=== PATIENT | female | born 1975 | race Caucasian/White ===

== ENCOUNTER 2017-05-29 13:31 | Outpatient (CLI) | payer BC ==
--- NOTE | 2017-05-29 16:32 | RAD ---
CERVICAL SPINE AP AND LATERAL STANDARD 05/29/17 HISTORY: Cervical radiculopathy, M54.12. FINDINGS: ACDF at C6-7 without hardware complication. No significant incorporation of the disc spacer. Mild facet disc arthropathy at this level. No listhesis. IMPRESSION: ACDF at C6-7 without hardware complication. POS: [facility]
== END 2017-05-29 13:32 | disposition home or self-care (01) ==
LOC: TBSIIMAG 13:31
PROVIDERS: ATTEND Neurological Surgery
DX: M54.12 Radiculopathy, cervical region (principal)
CPT/HCPCS: 72040

== ENCOUNTER 2017-07-30 08:18 | Outpatient (CLI) | payer BC ==
--- NOTE | 2017-07-30 09:17 | CT ---
CT CERVICAL SPINE NONCONTRAST: Date: 07-30-17 History: 41-year-old female with neck pain, cervicalgia. M54.2 Comparison: No prior CTs or MRIs of the cervical spine. 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 This is acerbated by degenerative changes at some levels. Alignment is normal. Vertebral body heights are maintained. No high grade degenerative facet changes at any level. C1-2: Essentially normal. C2-3: Essentially normal. C3-4: Small central disc protrusion abuts the ventral surface of the spinal cord. Mild central stenos is. No neural foraminal stenosis. Disc space maintained. C4-5: Minimal disc space narrowing. Central disc herniation (larger than the one at C3-4) indents the ventral surface of the spinal cord (to a greater degree than at the C3-4 level). This contributes to overall mild to moderate central spinal canal stenosis. No neural foraminal stenosis. C5-6: Mild disc space narrowing. Central and bilateral paracentral disc herniation (broader compared to the one at C4-5). This indents the ventral aspect of the spinal cord, and causes moderate central spinal canal stenosis. Associated endplate osteophytes. Small bilateral uncinate process osteophytes cause mild bilateral neural foraminal stenosis. C6-7: Anterior metallic plate and screws. Metallic markers in the disc space. No osseous bridges betw een the endplates. No significant neural foraminal stenosis. Mild to moderate central spinal canal st enosis. C7-T1: Normal. IMPRESSION: 1. Status post anterior cervical discectomy and fusion at C6-7. No ankylosis yet. 2. Central disc herniations at C5-6, C4-5, and C2-3 (in decreasing order of size), indenting the spin al cord. POS: [facility]
== END 2017-07-30 08:19 | disposition home or self-care (01) ==
LOC: TBSIIMAG 08:18
PROVIDERS: ATTEND Neurological Surgery
DX: M54.2 Cervicalgia (principal); M50.21 Other cervical disc displacement, high cervical region; M50.221 Other cervical disc displacement at C4-C5 level; M50.222 Other cervical disc displacement at C5-C6 level; Z98.890 Other specified postprocedural states
CPT/HCPCS: 72125

== ENCOUNTER 2022-04-16 08:31 | Outpatient (CLI) | payer BC | END 2022-04-16 08:32 | disposition home or self-care (01) | LOC: TBSIIMAG 08:31 | PROVIDERS: ATTEND Neurological Surgery | DX: M54.2 Cervicalgia (principal); M47.812 Spondylosis without myelopathy or radiculopathy, cervical region; Z98.890 Other specified postprocedural states | CPT/HCPCS: 72156 ==

== ENCOUNTER 2022-05-21 08:15 | Outpatient (CLI) | payer BC | END 2022-05-21 08:16 | disposition home or self-care (01) | LOC: LABBT 08:15 | PROVIDERS: ATTEND Neurological Surgery | DX: M54.12 Radiculopathy, cervical region (principal); Z20.822 Contact with and (suspected) exposure to COVID-19 | CPT/HCPCS: 87811 ==